=== PATIENT | female | born 1960 | race Caucasian/White ===

== ENCOUNTER → 2024-03-20 | Outpatient (CLI) | payer MEDICAID, SELFPAY ==
--- NOTE | 2024-03-20 13:45 | RAD_ITS ---
INDICATION: PAIN EXAMINATION/TECHNIQUE: X-RAY - RIGHT XR Knee Complete 4 Views or More 4 VIEWS COMPARISON: No relevant prior comparison study available FINDINGS: SOFT TISSUES: No soft tissue swelling or gas. No evidence of joint effusion. BONES/JOINTS: No acute fracture or subluxation.. Normal alignment. Mild narrowing of the medial joint compartment. No sclerotic or destructive changes observed. RAD/Knee 4 or More Views IMPRESSION: Mild narrowing of the medial joint compartment. Electronically Signed: Delbert Ledezma MD at 10:08 EDT ,
--- NOTE | 2024-03-20 13:45 | RAD_ITS ---
INDICATION: PAIN EXAMINATION/TECHNIQUE: X-RAY - LEFT XR Knee Complete 4 Views or More 4 VIEWS COMPARISON: No relevant prior comparison study available FINDINGS: SOFT TISSUES: No soft tissue swelling or gas. No joint effusion is seen. BONES/JOINTS: No acute fracture or subluxation.. Normal alignment. Mild narrowing of the medial joint compartment. The remainder of the joint spaces are within normal limits. No sclerotic or destructive changes observed. RAD/Knee 4 or More Views IMPRESSION: Mild narrowing of the medial joint compartment. Electronically Signed: Delbert Ledezma MD at 10:07 EDT ,
== END | disposition home or self-care (01) ==
PROVIDERS: Visit Provider Anesthesiology
DX: M25.561 Pain in right knee (principal); M25.562 Pain in left knee
CPT/HCPCS: 73564

== ENCOUNTER → 2025-04-07 | Outpatient (CLI) | payer MEDICAID, SELFPAY ==
--- NOTE | 2025-04-07 12:24 | RAD_ITS ---
PROCEDURE: HIPS B/L MIN 2 VIEWS W/ PELVIS 04/07/2025 REASON FOR EXAM: HIP PAIN TECHNIQUE: HIPS B/L MIN 2 VIEWS W/ PELVIS COMPARISON: None. FINDINGS: Mild osteopenia of the visualized bones. Degenerative joint disease. No fracture or dislocation is seen. No lytic or blastic bone lesion is noted. RAD/Hips B/L min 2 views w/ Pelvis IMPRESSION: Degenerative joint disease. No radiographic evidence of an acute bone abnormality. Reading [facility] [facility]
== END | disposition home or self-care (01) ==
LOC: RAD 12:23
PROVIDERS: Referring Provider Anesthesiology; Visit Provider Anesthesiology
DX: M25.551 Pain in right hip (principal); M25.552 Pain in left hip
CPT/HCPCS: 73521